=== PATIENT | female | born 2005 | race African-American/Black ===

== ENCOUNTER 2025-02-20 20:29 | Emergency (ER) | payer SELFPAY ==
[2025-02-20 20:55] LABS: Glucose, Urine (Dipstick) Normal (Negative); Leukocyte 25 (Negative); Pregnancy Test - Urine (BHCG) POSITIVE (Negative); Pregu Control Background? CLEAR/WHITE (CLR/WHITE); Pregu Control Bar Appear? YES (CONTROL BAR); Protein, Urine (Dipstick) 30 mg/dl (Neg-Trace); Specific Gravity, Urine 1.030 (1.005-1.030)
[2025-02-20 21:05] LABS: CAUTI Indications for Culture Pregnancy
[2025-02-20 21:12] LABS: Bacteria/HPF 3+ HPF (None Seen)
[2025-02-20 21:13] LABS: Mucous/LPF 4+ LPF (<2+)
[2025-02-20 21:18] LABS: Urine Culture Reflex Yes Yes
[2025-02-20 21:19] LABS: ALT (SGPT) 13 U/L (Less than 34); AST (SGOT) 24 U/L (11-34); Albumin 4.7 g/dL (3.1-4.5); Alkaline Phosphatase 45 U/L (40-100); Anion Gap 15 mmol/L (10-20); BUN (Urea Nitrogen) 11 mg/dL (8.4-21.0); Bilirubin, Total 0.5 mg/dL (0.3-1.2); Calc. Creatinine Clearance 0 mL/min (70-130); Calcium 10.0 mg/dL (7.8-10.44); Carbon Dioxide 20 mmol/L (22-29); Chloride 105 mmol/L (98-107); Globulin 3.6 g/dL (2.4-3.5); Glucose 86 mg/dL (70-105); Lipase 17 U/L (8-78); Potassium 3.7 mmol/L (3.5-5.1); Sodium 136 mmol/L (136-145)
[2025-02-20 21:33] LABS: #Basophils 0.05 10x3/uL (0.0-0.2); #Eosinophils 0.04 10x3/uL (0.0-0.5); #Monocytes 0.40 10x3/uL (0.0-1.1); #Neutrophils 4.25 10x3/uL (1.5-8.4); %Basophils 0.7 % (0.0-2.0); %Eosinophils 0.6 % (0.0-6.0); %Lymphocytes 28.8 % (18.0-47.0); %Monocytes 6.0 % (0.0-10.0); %Neutrophils 63.8 % (40.0-75.0); Hematocrit 35.8 % (34.9-44.5); Hemoglobin 12.4 g/dL (12.0-15.5); Mean Corpuscular Hemoglobin 31.7 pg (27.0-33.0); Mean Corpuscular Volume 91.6 fL (81.6-98.3); Platelet Count 306 10x3/uL (150-450); Red Blood Cell (RBC) Count 3.91 10x6/uL (3.90-5.03); White Blood Cell (WBC) Count 6.67 10x3/uL (3.5-10.5)
[2025-02-20] MEDS ORDERED: cefTRIAXone (ROCEPHIN) 1 GM VIAL ONE (22:23)
[2025-02-20] MEDS ORDERED: Cephalexin 250 MG CAP ONE (22:26)
== END 2025-02-20 22:33 | disposition home or self-care (01) ==
LOC: CSHERS 20:29
DX: O99.891 Other specified diseases and conditions complicating pregnancy (principal); R10.2 Pelvic and perineal pain; O23.41 Unspecified infection of urinary tract in pregnancy, first trimester; N39.0 Urinary tract infection, site not specified; F90.9 Attention-deficit hyperactivity disorder, unspecified type
CPT/HCPCS: 36415; 76801; 76856; 80053; 81001; 81025; 83690; 84702; 85025; 87086; J0696